=== PATIENT | female | born 1970 | race Caucasian/White ===

== ENCOUNTER 2024-04-10 09:38 | Inpatient (IN) | payer BC, MEDICAID ==
[~2024-04-10] VITALS: Ht 152.4 cm; Wt 71.0 kg
[2024-04-10 11:11] LABS: HCG,QUAL RESULT NEGATIVE (NEGATIVE)
[2024-04-10] MEDS ORDERED: ceFAZolin SODIUM 1 GM VIAL ONE (11:40)
[2024-04-10] MEDS: ACETAMINOPHEN I.V. 1000 MG 100 ML IV ONE (11:46)
[2024-04-10] MEDS: BUPIVACAINE LIPOSOME/PF 266 MG/20 ML VIAL INFIL ONE (12:13)
[2024-04-10] MEDS ORDERED: HYDROmorphone 1 MG/ML INJ. CARTRIDGE IVP PRN (12:30)
[2024-04-10] MEDS ORDERED: NALOXONE HCL 0.4 MG/ML AMP (NARCAN) IVP PRN ×2 (12:30)
[2024-04-10] MEDS ORDERED: MORPHINE 4 MG INJ. 4 MG/ML VIAL IVP PRN (12:30)
[2024-04-10] MEDS ORDERED: METOCLOPRAMIDE HCL 10 MG/2 ML VIAL IVP PRN (12:30)
[2024-04-10] MEDS: fentaNYL CITRATE/PF 100 MCG/2 ML AMP ONE ×2 (12:50→12:57)
[2024-04-10] MEDS: fentaNYL CITRATE/PF 100 MCG/2 ML AMP IVP ONE ×2 (13:00)
[2024-04-10] MEDS: HYDROmorphone 1 MG/ML INJ. CARTRIDGE ONE (13:11)
[2024-04-10] MEDS: HYDROmorphone 1 MG/ML INJ. CARTRIDGE IVP PRN (13:45)
[2024-04-10] MEDS ORDERED: RIME75TA (13:49)
[2024-04-10] MEDS ORDERED: IBUP-1970 PO (13:49)
[2024-04-10] MEDS ORDERED: VITD2000 PO (13:49)
[2024-04-10] MEDS ORDERED: L.RH1CAP PO (14:11)
[2024-04-10 17:05] VITALS: BP_SYST 115; PULSE 103; RESP 22; TEMP 97.2
[2024-04-10 17:26] VITALS: O2SAT 95
[2024-04-10] MEDS: ONDANSETRON HCL 4 MG/2 ML VIAL IVP PRN (17:41)
[2024-04-10] MEDS ORDERED: OXYCODONE/ACETAMINOPHEN 5-325 TABLET PO PRN (18:45)
[2024-04-10 20:00] VITALS: BP_SYST 103; PULSE 100; RESP 18; TEMP 98.3; O2SAT 100; O2SAT 98
[2024-04-10] MEDS: KETOROLAC TROMETHAMINE 30 MG VIAL IVP PRN (20:18)
[2024-04-11] VITALS: BP_SYST 115; PULSE 85; RESP 18; TEMP 98.1; O2SAT 98
[2024-04-11 08:00] VITALS: BP_SYST 106; PULSE 84; RESP 17; TEMP 98.2; O2SAT 100
[2024-04-11 11:26] VITALS: BP_SYST 101; PULSE 72; RESP 16; TEMP 97.7; O2SAT 98
[2024-04-11] MEDS: IBUPROFEN 600 MG TABLET PO PRN (12:51)
[2024-04-11 14:23] VITALS: BP_SYST 106; PULSE 84; RESP 17; TEMP 98.1; O2SAT 100
== END 2024-04-11 14:30 | disposition home or self-care (01) | DRG 743 ==
LOC: SMU 09:38
PROVIDERS: ADMIT Obstetrics & Gynecology; ATTEND Obstetrics & Gynecology
PROC: 0UB10ZZ Excision of Left Ovary, Open Approach (ICD-10-PCS; principal; 2024-04-10 11:46)
DX: N83.292 Other ovarian cyst, left side (principal); Z79.899 Other long term (current) drug therapy
CPT/HCPCS: 84703; 87081; 88305; 88307; C9290; J0131; J0330; J0690; J1170; J1885; J2405; J2704; J2710; J3010; J3490; J7120